=== PATIENT | male | born 1990 | race African-American/Black ===

== ENCOUNTER 2023-08-29 17:34 | Emergency (ER) | payer OTHER ==
[~2023-08-29] VITALS: Ht 185.4 cm; Wt 86.0 kg
[2023-08-29 17:36] VITALS: TEMP 98.4; O2SAT 99
[2023-08-29] MEDS ORDERED: SODIUM CHLORIDE 0.9% 1,000 ML IV ONE (18:00)
[2023-08-29 18:53] LABS: CHLORIDE 102 mEq/L (98-107); POTASSIUM 3.2 mEq/L (3.5-5.1); SODIUM 137 mEq/L (136-145)
[2023-08-29 18:54] LABS: CALCIUM 9.6 mg/dL (8.7-10.4); CARBON DIOXIDE 26 mEq/L (21-32)
[2023-08-29 18:54] LABS: BASOPHILS % 0.3 % (0.0-2.0); EOSINOPHILS % 0.5 % (0.0-5.0); HEMATOCRIT. 47.8 % (42.0-52.0); HEMOGLOBIN. 16.5 g/dL (14.0-18.0); LYMPHOCYTES % 9.2 % (20.0-50.0); MEAN CORPUSCULAR HEMOGLOBIN 32.1 pg (28.0-32.0); MEAN CORPUSCULAR HGB CONC 34.6 g/dL (31.0-37.0); MEAN CORPUSCULAR VOLUME 92.9 fL (80.0-94.0); MEAN PLATELET VOLUME 8.4 fl (7.4-10.4); MONOCYTES % 4.3 % (2.0-8.0); NEUTROPHILS % 85.7 % (40.0-76.0); PLATELET 293 x1000/uL (130-400); RED BLOOD CELL COUNT 5.15 mill/uL (4.7-6.1); RED CELL DISTRIBUTION WIDTH 13.7 % (11.6-14.6); WHITE BLOOD COUNT 11.2 x1000/uL (4.5-11.0)
[2023-08-29 18:59] LABS: CREATININE 0.9 mg/dL (0.6-1.3); GLUCOSE 149 mg/dL (70-105); UREA NITROGEN BLOOD 6 mg/dL (9-23)
[2023-08-29 19:01] LABS: ALANINE AMINOTRANSFERASE 31 IU/L (10-49); ALBUMIN 4.8 g/dL (3.2-4.8); ASPARTATE AMINOTRANSFERASE 26 IU/L (<34); BILIRUBIN TOTAL 1.1 mg/dL (0.1-1.0); PROTEIN TOTAL 7.7 g/dL (6.0-8.3)
[2023-08-29] MEDS: ONDANSETRON HCL 4MG/2ML INJ IV ONE (19:33)
[2023-08-29] MEDS: POTASSIUM CHLORIDE 20MEQ/PACKET PO ONE (19:34)
[2023-08-29] MEDS ORDERED: ONDA4TAB11 PO (20:05)
[2023-08-29 20:52] VITALS: BP 128/82; PULSE 72; RESP 16
== END 2023-08-29 21:00 | disposition home or self-care (01) ==
LOC: ER 17:34
DX: R55 Syncope and collapse (principal); R11.2 Nausea with vomiting, unspecified; R19.7 Diarrhea, unspecified
CPT/HCPCS: 99285; 93880; 96374; 71045; 80053; 85025; 36415; 76604; 93005; J2405; J7030

== ENCOUNTER 2024-02-24 23:55 | Emergency (ER) | payer OTHER ==
[~2024-02-24] VITALS: Ht 167.6 cm; Wt 91.0 kg
[~2024-02-24 23:55] MED LIST: ONDA-239 PO
[2024-02-24 23:57] VITALS: BP 130/89; PULSE 97; RESP 14; TEMP 98.4; O2SAT 99
== END 2024-02-25 01:19 | disposition left against medical advice (07) ==
LOC: ER 23:55
DX: R11.0 Nausea (principal); Z53.21 Procedure and treatment not carried out due to patient leaving prior to being seen by health care provider